=== PATIENT | female | born 1980 | race Caucasian/White ===

== ENCOUNTER 2021-02-10 05:36 | Inpatient (IN) | payer MEDICAID, OTHER ==
[~2021-02-10] VITALS: Ht 157.5 cm; Wt 81.9 kg
[2021-02-10 06:41] LABS: Urine Bacteria NONE SEEN /hpf (None Seen); Urine Blood 3+ /uL (Negative); Urine Mucus FEW (None Seen); Urine Specific Gravity 1.018 (1.001-1.035); Urine WBC 2 /hpf (0 - 5)
[2021-02-10 07:02] LABS: Calcium 8.6 mg/dL (8.5-10.1); Potassium 3.6 mmol/L (3.5-5.1)
[2021-02-10 07:09] LABS: Albumin 3.1 g/dL (3.4-5.0); BUN/Creatinine Ratio 7.7; Bilirubin, Total 0.4 mg/dL (0.2-1.0); Total Protein 7.5 g/dL (6.4-8.2)
[2021-02-10 07:26] LABS: Basophils # (auto) 0.1 10 ^3/uL (0-0.2); Basophils % (auto) 0.3 % (0.0-2.0); Eosinophils # (auto) 0 10 ^3/uL (0-0.8); Hematocrit 32.4 % (36.0-46.0); Hemoglobin 10.1 g/dL (12.2-16.2); Lymphocytes % (auto) 9.4 % (10.0-50.0); Mean Corpuscular Hemoglobin 22.3 pg (28.0-32.0); Mean Corpuscular Hgb Conc. 31.1 g/dL (32.0-36.0); Mean Corpuscular Volume 71.7 fL (80.0-100.0); Monocytes # (auto) 1.6 10 ^3/uL (0-1.3); Monocytes % (auto) 7.6 % (0.0-12.0); Neutrophils # (auto) 17.1 10 ^3/uL (1.6-8.6); Neutrophils % (auto) 82.7 % (37.0-80.0); Red Blood Cells 4.52 10^6/uL (4.0-5.20); Red Cell Distribution Width 18.1 % (11.8-14.3); White Blood Cell 20.6 10^3/uL (4.4-10.8)
[2021-02-10] MEDS ORDERED: cefTRIAXone 1GM/50ML D5W 50 ML IV ONE (08:30)
[2021-02-10] MEDS ORDERED: CLINDAMYCIN 900MG IV 50 ML IV ONE (09:45)
[2021-02-10] MEDS ORDERED: levoFLOXacin 500MG 100 ML IV ONE (09:45)
[2021-02-10] MEDS ORDERED: PIPERACILLIN-TAZOB 3.375GM 100 ML IV ONE (09:45)
[2021-02-10] MEDS ORDERED: DEXTROSE (50%) 50ML SYRG IV PRN (09:45)
[2021-02-10] MEDS ORDERED: NITROGLYCERIN 0.4 MG SL TAB SL PRN (09:45)
[2021-02-10] MEDS ORDERED: TEMAZEPAM 15 MG CAP PO PRN (09:45)
[2021-02-10] MEDS ORDERED: MORPHINE SULFATE INJECTION 2 MG/ML SYRG IV PRN (09:45)
[2021-02-10] MEDS ORDERED: GADOTERATE MEG 10 MMOL/20ml INJ (0.5MMOL/ml) IV ONE (10:08)
[2021-02-10] MEDS: ENOXAPARIN SOD 40 MG/0.4 ML SYRINGE SC SCH (10:30)
[2021-02-10] MEDS: ONDANSETRON HCL 4 MG/2 ML VIAL IV PRN ×3 (10:46→22:53)
[2021-02-10] MEDS: MORPHINE SULFATE INJECTION 2 MG/ML SYRG IV PRN ×3 (10:46→22:52)
[2021-02-10] MEDS: SODIUM CHLORIDE 0.9% 1,000 ML IV SCH ×2 (11:59→20:37)
[2021-02-10] MEDS: ACCU-CHEK COMFORT CURVE STRIP VI SCH ×3 (12:08→22:54)
[2021-02-10] MEDS: InsuLIN REG 1unit/0.01ml Soln (100units/ml) SC SCH ×3 (12:08→22:00)
[2021-02-10] MEDS: traMADol HCL 50 MG TAB PO PRN ×2 (13:03→20:00)
[2021-02-10] MEDS: CLINDAMYCIN 600MG IV 50 ML IV SCH (20:37)
[2021-02-10 23:15] VITALS: BP 156/88
[2021-02-11] MEDS ORDERED: TAMO20TA9 PO (00:52)
[2021-02-11] MEDS: CLINDAMYCIN 600MG IV 50 ML IV SCH ×3 (02:23→17:34)
[2021-02-11 05:05] VITALS: BP 143/81
[2021-02-11] MEDS: ACCU-CHEK COMFORT CURVE STRIP VI SCH ×4 (06:10→23:14)
[2021-02-11] MEDS: SODIUM CHLORIDE 0.9% 1,000 ML IV SCH ×2 (06:11→15:49)
[2021-02-11 06:15] LABS: Hematocrit 26.6 % (36.0-46.0); Hemoglobin 8.5 g/dL (12.2-16.2); Mean Corpuscular Hgb Conc. 31.9 g/dL (32.0-36.0); Red Blood Cells 3.69 10^6/uL (4.0-5.20); Red Cell Distribution Width 17.8 % (11.8-14.3); White Blood Cell 25.6 10^3/uL (4.4-10.8)
[2021-02-11] MEDS: ONDANSETRON HCL 4 MG/2 ML VIAL IV PRN ×4 (06:17→23:00)
[2021-02-11] MEDS: InsuLIN REG 1unit/0.01ml Soln (100units/ml) SC SCH ×4 (06:17→23:54)
[2021-02-11] MEDS: MORPHINE SULFATE INJECTION 2 MG/ML SYRG IV PRN ×4 (06:18→23:00)
[2021-02-11 06:27] LABS: Albumin 2.7 g/dL (3.4-5.0); Calcium 8.1 mg/dL (8.5-10.1); Potassium 3.9 mmol/L (3.5-5.1)
[2021-02-11 06:32] LABS: BUN/Creatinine Ratio 14.9; Band Neutrophils % (manual) 0; Basophils % (manual) 0 (0.0-2.0); Bilirubin, Total 0.3 mg/dL (0.2-1.0); Blast Cells 0; Eosinophils % (manual) 0 (0-7); Metamyelocytes % 0; Myelocytes % 0; Promyelocytes % 0; Reactive Lymphocytes 0; Total Protein 7.1 g/dL (6.4-8.2)
[2021-02-11 08:00] VITALS: BP_SYST 135; BP_SYST 137; BP_DIAS 83; BP_DIAS 84
[2021-02-11] MEDS: levoFLOXacin 500MG 100 ML IV SCH (09:25)
[2021-02-11] MEDS: ENOXAPARIN SOD 40 MG/0.4 ML SYRINGE SC SCH (09:25)
[2021-02-11 12:08] LABS: Lymphocytes % (manual) 23 (10.0-50.0); Monocytes % (manual) 11 (0-12)
[2021-02-11 13:00] VITALS: BP 135/84
[2021-02-11] MEDS: ALUM & MAG HYDROX-SIMETH LIQ(MAALOX) 30 ML PO PRN (17:33)
[2021-02-11 18:28] VITALS: BP 145/85
[2021-02-11] MEDS: traMADol HCL 50 MG TAB PO PRN (20:47)
[2021-02-11] MEDS: ACETAMINOPHEN 500 MG TAB PO PRN (20:48)
[2021-02-11 21:00] VITALS: BP 134/73
[2021-02-12] VITALS (9 sets, daily range): BP systolic 134–169; BP diastolic 76–94
[2021-02-12] MEDS: CLINDAMYCIN 600MG IV 50 ML IV SCH ×3 (02:52→17:56)
[2021-02-12] MEDS: SODIUM CHLORIDE 0.9% 1,000 ML IV SCH ×3 (02:53→18:40)
[2021-02-12] MEDS: MORPHINE SULFATE INJECTION 2 MG/ML SYRG IV PRN ×2 (04:12→08:16)
[2021-02-12] MEDS: ONDANSETRON HCL 4 MG/2 ML VIAL IV PRN ×2 (04:12→08:16)
[2021-02-12] MEDS: ALUM & MAG HYDROX-SIMETH LIQ(MAALOX) 30 ML PO PRN (06:14)
[2021-02-12] MEDS: ACCU-CHEK COMFORT CURVE STRIP VI SCH ×4 (06:40→21:53)
[2021-02-12] MEDS: InsuLIN REG 1unit/0.01ml Soln (100units/ml) SC SCH ×4 (07:15→21:59)
[2021-02-12 09:03] LABS: Hematocrit 21.7 % (36.0-46.0); Mean Corpuscular Hemoglobin 22.3 pg (28.0-32.0); Mean Corpuscular Hgb Conc. 30.8 g/dL (32.0-36.0); Mean Corpuscular Volume 72.6 fL (80.0-100.0); Red Blood Cells 2.99 10^6/uL (4.0-5.20); White Blood Cell 29.4 10^3/uL (4.4-10.8)
[2021-02-12 09:11] LABS: Hemoglobin 6.7 g/dL (12.2-16.2)
[2021-02-12 09:12] LABS: Basophils % (manual) 0 (0.0-2.0); Blast Cells 0; Eosinophils % (manual) 0 (0-7); Metamyelocytes % 0; Myelocytes % 0; Promyelocytes % 0; Reactive Lymphocytes 0
[2021-02-12] MEDS ORDERED: diphenhdrAMINE HCL 25 MG CAP PO PRN (09:30)
[2021-02-12] MEDS: ENOXAPARIN SOD 40 MG/0.4 ML SYRINGE SC SCH (09:39)
[2021-02-12] MEDS: levoFLOXacin 500MG 100 ML IV SCH (09:39)
[2021-02-12] MEDS ORDERED: VANCOMYCIN PER PHARMACY 0 MG IV SCH (10:15)
[2021-02-12] MEDS ORDERED: VANCOMYCIN 1GM/250ML 250 ML IV ONE (11:00)
[2021-02-12] MEDS ORDERED: ACETAMINOPHEN 500 MG TAB PO ONE (12:00)
[2021-02-12] MEDS: ACETAMINOPHEN 500 MG TAB PO PRN (12:14)
[2021-02-12] MEDS: HYDROmorphone HCL 2 MG/ML VL IV PRN ×3 (13:03→22:00)
[2021-02-12 14:23] LABS: Band Neutrophils % (manual) 4; Lymphocytes % (manual) 7 (10.0-50.0); Monocytes % (manual) 7 (0-12)
[2021-02-12] MEDS: VANCOMYCIN 1GM/250ML 250 ML IV SCH (20:15)
[2021-02-13] MEDS: SODIUM CHLORIDE 0.9% 1,000 ML IV SCH ×4 (00:56→21:20)
[2021-02-13] MEDS: CLINDAMYCIN 600MG IV 50 ML IV SCH ×2 (02:18→10:47)
[2021-02-13] MEDS: HYDROmorphone HCL 2 MG/ML VL IV PRN ×5 (02:18→21:09)
[2021-02-13] MEDS: ONDANSETRON HCL 4 MG/2 ML VIAL IV PRN ×5 (02:18→21:09)
[2021-02-13] MEDS: VANCOMYCIN 1GM/250ML 250 ML IV SCH ×3 (04:13→19:29)
[2021-02-13 05:20] VITALS: BP 159/54
[2021-02-13 05:48] LABS: Hemoglobin 7.5 g/dL (12.2-16.2)
[2021-02-13 05:49] LABS: Albumin 2.2 g/dL (3.4-5.0); Potassium 3.7 mmol/L (3.5-5.1)
[2021-02-13 05:50] LABS: Hematocrit 23.6 % (36.0-46.0); Mean Corpuscular Hemoglobin 23.9 pg (28.0-32.0); Mean Corpuscular Hgb Conc. 31.9 g/dL (32.0-36.0); Mean Corpuscular Volume 74.7 fL (80.0-100.0); Red Blood Cells 3.16 10^6/uL (4.0-5.20)
[2021-02-13 05:54] LABS: BUN/Creatinine Ratio 15.3; Bilirubin, Total 0.7 mg/dL (0.2-1.0); Total Protein 6.7 g/dL (6.4-8.2)
[2021-02-13 06:00] LABS: Basophils % (manual) 0 (0.0-2.0); Blast Cells 0; Eosinophils % (manual) 0 (0-7); Metamyelocytes % 0; Myelocytes % 0; Promyelocytes % 0; Reactive Lymphocytes 0
[2021-02-13] MEDS: ACCU-CHEK COMFORT CURVE STRIP VI SCH ×4 (06:11→21:36)
[2021-02-13] MEDS: InsuLIN REG 1unit/0.01ml Soln (100units/ml) SC SCH ×4 (06:17→21:39)
[2021-02-13 06:54] LABS: Band Neutrophils % (manual) 5; Lymphocytes % (manual) 7 (10.0-50.0); Monocytes % (manual) 5 (0-12)
[2021-02-13] MEDS: levoFLOXacin 500MG 100 ML IV SCH (07:59)
[2021-02-13] MEDS ORDERED: cloNIDine HCL 0.1 MG TAB PO PRN (08:00)
[2021-02-13 09:00] VITALS: BP 141/76
[2021-02-13] MEDS: ENOXAPARIN SOD 40 MG/0.4 ML SYRINGE SC SCH (10:00)
[2021-02-13 13:00] VITALS: BP 147/88
[2021-02-13] MEDS ORDERED: IRON SUCROSE COMPLEX 200 MG in SODIUM CHL 0.9% 100 ML IV SCH (13:50)
[2021-02-13] MEDS: SODIUM FERR GLUC 62.5MG/5ML 125 MG in SODIUM CHL 0.9% 100 ML IV SCH (15:39)
[2021-02-13 16:21] LABS: % Iron Saturation 6.6 % (15-50)
[2021-02-13 17:00] VITALS: BP 149/93
[2021-02-13] MEDS: metroNIDAZOLE 500MG/100ML 100 ML IV SCH (21:36)
[2021-02-13 22:00] VITALS: BP 140/96
[2021-02-14] MEDS: ONDANSETRON HCL 4 MG/2 ML VIAL IV PRN ×5 (01:14→20:28)
[2021-02-14] MEDS: HYDROmorphone HCL 2 MG/ML VL IV PRN ×5 (01:14→20:39)
[2021-02-14] MEDS: VANCOMYCIN 1GM/250ML 250 ML IV SCH ×3 (03:44→20:28)
[2021-02-14] MEDS: SODIUM CHLORIDE 0.9% 1,000 ML IV SCH ×3 (04:00→17:23)
[2021-02-14] MEDS: metroNIDAZOLE 500MG/100ML 100 ML IV SCH (05:33)
[2021-02-14 05:45] LABS: Hemoglobin 7.4 g/dL (12.2-16.2); Mean Corpuscular Hgb Conc. 32.2 g/dL (32.0-36.0); Mean Corpuscular Volume 74.5 fL (80.0-100.0); Red Blood Cells 3.09 10^6/uL (4.0-5.20); Red Cell Distribution Width 19.8 % (11.8-14.3)
[2021-02-14 05:50] LABS: Calcium 7.9 mg/dL (8.5-10.1); Potassium 3.2 mmol/L (3.5-5.1)
[2021-02-14 05:53] LABS: BUN/Creatinine Ratio 14.1
[2021-02-14 06:03] LABS: Basophils % (manual) 0 (0.0-2.0); Blast Cells 0; Eosinophils % (manual) 0 (0-7); Promyelocytes % 0; Reactive Lymphocytes 0; White Blood Cell 36.7 10^3/uL (4.4-10.8)
[2021-02-14] MEDS: ACCU-CHEK COMFORT CURVE STRIP VI SCH ×4 (06:05→21:40)
[2021-02-14] MEDS: InsuLIN REG 1unit/0.01ml Soln (100units/ml) SC SCH ×4 (06:09→21:43)
[2021-02-14 06:28] LABS: Bilirubin, Total 0.6 mg/dL (0.2-1.0); Total Protein 6.3 g/dL (6.4-8.2)
[2021-02-14 07:43] LABS: Band Neutrophils % (manual) 4; Lymphocytes % (manual) 3 (10.0-50.0); Metamyelocytes % 1; Monocytes % (manual) 3 (0-12); Myelocytes % 2
[2021-02-14 08:00] VITALS: BP 117/74
[2021-02-14] MEDS: levoFLOXacin 500MG 100 ML IV SCH (08:35)
[2021-02-14] MEDS: MILK OF MAGNESIA 30ML SUSP PO SCH (10:00)
[2021-02-14 13:04] VITALS: BP 126/83
[2021-02-14] MEDS: SODIUM FERR GLUC 62.5MG/5ML 125 MG in SODIUM CHL 0.9% 100 ML IV SCH (13:23)
[2021-02-14] MEDS: PIPERACILLIN-TAZOB 3.375GM 100 ML IV SCH ×2 (14:29→21:51)
[2021-02-14 17:00] VITALS: BP 108/79
[2021-02-14 22:00] VITALS: BP 145/83
[2021-02-15] MEDS: ONDANSETRON HCL 4 MG/2 ML VIAL IV PRN ×3 (01:24→10:45)
[2021-02-15] MEDS: HYDROmorphone HCL 2 MG/ML VL IV PRN ×3 (01:27→10:46)
[2021-02-15] MEDS: SODIUM CHLORIDE 0.9% 1,000 ML IV SCH ×2 (03:45→06:40)
[2021-02-15] MEDS: VANCOMYCIN 1GM/250ML 250 ML IV SCH (04:00)
[2021-02-15 05:00] VITALS: BP 137/90
[2021-02-15] MEDS: PIPERACILLIN-TAZOB 3.375GM 100 ML IV SCH (06:19)
[2021-02-15 06:24] LABS: Albumin 2.1 g/dL (3.4-5.0); Calcium 8.3 mg/dL (8.5-10.1); Potassium 3.1 mmol/L (3.5-5.1)
[2021-02-15 06:26] LABS: BUN/Creatinine Ratio 12.7
[2021-02-15 06:28] LABS: Bilirubin, Total 0.9 mg/dL (0.2-1.0); Total Protein 6.5 g/dL (6.4-8.2)
[2021-02-15] MEDS: ACCU-CHEK COMFORT CURVE STRIP VI SCH (06:30)
[2021-02-15] MEDS: InsuLIN REG 1unit/0.01ml Soln (100units/ml) SC SCH (06:32)
[2021-02-15 09:00] VITALS: BP 121/84
[2021-02-15] MEDS: traMADol HCL 50 MG TAB PO PRN (09:38)
[2021-02-15] MEDS: MILK OF MAGNESIA 30ML SUSP PO SCH (10:00)
== END 2021-02-15 11:36 | disposition left against medical advice (07) | DRG 720 ==
LOC: ER 05:36 → TELE 09:39 → TELE-WESTW 22:27
PROVIDERS: ADMIT Internal Medicine; ATTEND Family Medicine
PROC: 30233N1 Transfusion of Nonautologous Red Blood Cells into Peripheral Vein, Percutaneous Approach (ICD-10-PCS; principal; 2021-02-12)
DX: A41.9 Sepsis, unspecified organism (principal); R65.21 Severe sepsis with septic shock; C56.9 Malignant neoplasm of unspecified ovary; D50.9 Iron deficiency anemia, unspecified; E86.0 Dehydration; E11.65 Type 2 diabetes mellitus with hyperglycemia; E66.9 Obesity, unspecified; I10 Essential (primary) hypertension; R31.9 Hematuria, unspecified; Z20.822 Contact with and (suspected) exposure to COVID-19; K59.00 Constipation, unspecified; Z53.29 Procedure and treatment not carried out because of patient's decision for other reasons; Z85.3 Personal history of malignant neoplasm of breast; Z68.32 Body mass index [BMI] 32.0-32.9, adult; Z90.49 Acquired absence of other specified parts of digestive tract; Z79.810 Long term (current) use of selective estrogen receptor modulators (SERMs); Z82.49 Family history of ischemic heart disease and other diseases of the circulatory system; Z83.3 Family history of diabetes mellitus; Z90.12 Acquired absence of left breast and nipple
CPT/HCPCS: 36415; 71045; 73723; 74176; 76830; 76856; 80053; 80202; 81001; 82378; 82962; 83036; 83540; 83550; 83605; 83690; 85007; 85025; 85027; 85652; 86304; 86850; 86900; 86901; 86920; 87040; 87086; 87426; 96365; 96366; 96367; 96368; 96372; G0378; J0696; J1756; J1815; J1956; J2405; J2543; J3490

== ENCOUNTER 2021-12-22 18:49 | Emergency (ER) | payer MEDICAID ==
[~2021-12-22] VITALS: Ht 157.5 cm; Wt 157.0 kg
[~2021-12-22 18:49] MED LIST: TAMO20TA9 PO
[2021-12-22] MEDS ORDERED: KETOROLAC TROMETH 60MG/2ML VIAL IM ONE (20:30)
[2021-12-23 00:05] VITALS: BP 142/74
== END 2021-12-23 00:07 | disposition home or self-care (01) ==
LOC: ER 18:49
DX: M79.10 Myalgia, unspecified site (principal); I10 Essential (primary) hypertension; V43.52XA Car driver injured in collision with other type car in traffic accident, initial encounter; Y93.89 Activity, other specified; Y92.89 Other specified places as the place of occurrence of the external cause; Y99.8 Other external cause status
CPT/HCPCS: 96372; 99283; J1885